=== PATIENT | female | born 1945 | race Caucasian/White ===

== ENCOUNTER 2017-05-31 11:18 | Observation (INO) | payer MEDICARE ==
[~2017-05-31] VITALS: Ht 162.6 cm; Wt 58.2 kg
[~2017-05-31 11:18] MED LIST: ASPI-482 PO; ATOR40TA59 PO; BUDE0.5A IH; MELO15TA23 PO; METO25TA4 PO; METO25TA9 PO; NITR0.4T SL; OMEP20TA63 PO; OMEP20TA8 PO; OXYB5TAB7 PO; SUCR1TAB PO; SUCR1TAB35 PO
[2017-05-31 11:40] LABS: BASO % 1 % (0-3); EOS % 4 % (0-3); HEMATOCRIT 40.5 % (36.0-47.0); HEMOGLOBIN 13.3 g/dL (12.0-15.5); LYMPH # 1.3 x10^3/uL (1.0-4.8); LYMPH % 32 % (24-48); MEAN CORPUSCULAR HEMOGLOBIN 31 pg (25-35); MEAN CORPUSCULAR HGB CONC 33 g/dL (31-37); MEAN CORPUSCULAR VOLUME 93 fL (79-100); MONO % 14 % (0-9); NEUT % 50 % (31-73); PLATELET COUNT 212 x10^3/uL (140-400); RED BLOOD COUNT 4.37 x10^6/uL (3.50-5.40); RED CELL DISTRIBUTION WIDTH 13.3 % (11.5-14.5); WHITE BLOOD COUNT 4.3 x10^3/uL (4.0-11.0)
[2017-05-31] MEDS ORDERED: ASPIRIN CHEWABLE 81 MG TABLET. PO ONE (11:45)
[2017-05-31 11:55] LABS: CALCIUM 8.5 mg/dL (8.5-10.1); CREATININE 0.6 mg/dL (0.6-1.0); POTASSIUM 3.8 mmol/L (3.5-5.1)
--- NOTE | 2017-05-31 11:55 | PHYS DOC ---
Past Medical History Past Medical History: GERD Past Surgical History: Appendectomy, Oophorectomy Additional Past Surgical Histo: X2 CARDIAC STENTS PLACED 2005 Alcohol Use: Rarely Drug Use: None Adult General Chief Complaint Chief Complaint: CHEST PAIN HPI HPI 72-year-old female presenting to the emergency department today with chest pain. She describes the pain as a pressure that is nonradiating intermittent and without alleviating factors. She does have a history of esophageal dilation and history of cardiac stents in the past. She denies nausea or diaphoresis. She does have shortness of breath associated with it. She has a history of COPD as well. Review of systems is negative for fevers chills cough nausea vomiting. She denies abdominal pain. All other review of systems is negative unless otherwise noted in history of present illness. ED course: 72-year-old female presenting to the emergency department today with chest pain. EKG obtained. EKG shows sinus rhythm with a regular rate. [place] normal. ST segments show minimal depression in the anterior lateral leads. No previous available for comparison in cardioserver. Blood work obtained. The patient received a nebulizer in the emergency department. Chest x-ray shows no obvious infiltrate or pneumothorax. Reviewed by myself. Blood work unremarkable. Given the patient's strong cardiac history the patient was admitted for ACS rule out. Review of Systems Review of Systems SEE ABOVE. Current Medications Current Medications Current Medications Medications (Trade) Dose Ordered Sig/[place] Start Time Stop Time Status Last Admin Dose Admin Albuterol/ Ipratropium (Duoneb) 3 ml 1X ONCE 05/31/17 12:00 05/31/17 12:01 DC 05/31/17 12:05 3 ML Aspirin (Children'S Aspirin) 243 mg 1X ONCE 05/31/17 11:45 05/31/17 11:46 DC 05/31/17 11:48 243 MG Morphine Sulfate 2 mg PRN Q2HR PRN 05/31/17 12:30 06/01/17 12:29 Ondansetron HCl (Zofran) 4 mg PRN Q8HRS PRN 05/31/17 12:30 06/01/17 12:29 Allergies Allergies Allergies Coded Allergies Type Severity Reaction Last Updated Verified Penicillins Allergy Intermediate 08/06/14 Yes influenza virus vaccine, specific Adverse Reaction Intermediate made me "sick "08/06/14 Yes Physical Exam Physical Exam SEE ABOVE Constitutional: Well developed, well nourished, no acute distress, non-toxic appearance. [] HENT: Normocephalic, atraumatic, bilateral external ears normal, oropharynx moist, no oral exudates, nose normal. [] Eyes: PERRLA, EOMI, conjunctiva normal, no discharge. [] Neck: Normal range of motion, no tenderness, supple, no stridor. [] Cardiovascular:Heart rate regular rhythm, no murmur [] Lungs & Thorax: Wheezing bilaterally mild. Mildly tachypneic. Abdomen: Bowel sounds normal, soft, no tenderness, no masses, no pulsatile masses. [] Skin: Warm, dry, no erythema, no rash. [] Back: No tenderness, no CVA tenderness. [] Extremities: No tenderness, no cyanosis, no clubbing, ROM intact, no edema. [] Neurologic: Alert and oriented X 3, normal motor function, normal sensory function, no focal deficits noted. [] Psychologic: Affect normal, judgement normal, mood normal. [] Current Patient Data Vital Signs Vital Signs Date Time Temp Pulse Resp B/P (MAP) Pulse Ox O2 Delivery O2 Flow Rate FiO2 05/31/17 12:08 100 Room Air 05/31/17 11:58 64 132/72 (92) 05/31/17 11:26 97.8 24 97.8 Lab Values Laboratory Tests Test 05/31/17 11:30 White Blood Count 4.3 x10^3/uL (4.0-11.0) Red Blood Count 4.37 x10^6/uL (3.50-5.40) Hemoglobin 13.3 g/dL (12.0-15.5) Hematocrit 40.5 % (36.0-47.0) Mean Corpuscular Volume 93 fL (79-100) Mean Corpuscular Hemoglobin 31 pg (25-35) Mean Corpuscular Hemoglobin Concent 33 g/dL (31-37) Red Cell Distribution Width 13.3 % (11.5-14.5) Platelet Count 212 x10^3/uL (140-400) Neutrophils (%) (Auto) 50 % (31-73) Lymphocytes (%) (Auto) 32 % (24-48) Monocytes (%) (Auto) 14 % (0-9) H Eosinophils (%) (Auto) 4 % (0-3) H Basophils (%) (Auto) 1 % (0-3) Neutrophils # (Auto) 2.1 x10^3uL (1.8-7.7) Lymphocytes # (Auto) 1.3 x10^3/uL (1.0-4.8) Monocytes # (Auto) 0.6 x10^3/uL (0.0-1.1) Eosinophils # (Auto) 0.2 x10^3/uL (0.0-0.7) Basophils # (Auto) 0.0 x10^3/uL (0.0-0.2) Sodium Level 142 mmol/L (136-145) Potassium Level 3.8 mmol/L (3.5-5.1) Chloride Level 105 mmol/L (98-107) Carbon Dioxide Level 30 mmol/L (21-32) Anion Gap 7 (6-14) Blood Urea Nitrogen 11 mg/dL (7-20) Creatinine 0.6 mg/dL (0.6-1.0) Estimated GFR (Cockcroft-Gault) 98.0 Glucose Level 88 mg/dL (70-99) Calcium Level 8.5 mg/dL (8.5-10.1) Total Bilirubin 0.7 mg/dL (0.2-1.0) Direct Bilirubin 0.1 mg/dL (0.0-0.2) Aspartate Amino Transferase (AST) 18 U/L (15-37) Alanine Aminotransferase (ALT) 24 U/L (14-59) Alkaline Phosphatase 58 U/L (46-116) Troponin I Quantitative < 0.017 ng/mL (0.000-0.055) EB-Rox-G-Type Natriuretic Peptide 162 pg/mL (0-124) H Total Protein 7.4 g/dL (6.4-8.2) Albumin 3.8 g/dL (3.4-5.0) Lipase 139 U/L (73-393) Laboratory Tests 05/31/17 11:30 Laboratory Tests 05/31/17 11:30 EKG EKG [] Radiology/Procedures Radiology/Procedures [] Course & Med Decision Making Course & Med Decision Making Pertinent Labs and Imaging studies reviewed. (See chart for details) [] Dragon Disclaimer Dragon Disclaimer This electronic medical record was generated, in whole or in part, using a voice recognition dictation system. Departure Departure Impression: Primary Impression: Chest pain Disposition: ADMITTED INPATIENT Condition: STABLE Referrals: LEXUS CERVANTES (PCP) ANA BYRNE MD May 31, 2017 11:55
[2017-05-31] MEDS ORDERED: IPRATRPIUM/ALBUTEROL 0.5/2.5MG 3 ML NEBU. NEB ONE (12:00)
[2017-05-31 12:01] LABS: ALBUMIN 3.8 g/dL (3.4-5.0); DIRECT BILIRUBIN 0.1 mg/dL (0.0-0.2); TOTAL BILIRUBIN 0.7 mg/dL (0.2-1.0); TOTAL PROTEIN 7.4 g/dL (6.4-8.2)
--- NOTE | 2017-05-31 12:08 | EKG ---
[facility] [address] [place] [address] Test Date: 2017-05-31 Test Time: 11:25:24 Pat Name: MISBAH MCMAHON Department: Room: Gender: F Securities Supervisor: : 1945 Requested By: ANA BYRNE Order Number: [id number] Reading MD: Measurements Intervals [place] Rate: 72 P: 13 [place]: 144 QRS: 1 QRSD: 76 T: 0 QT: 364 QTc: 400 Interpretive Statements SINUS RHYTHM NORMAL ECG RI6.01 Unconfirmed report No previous ECG available for comparison
--- NOTE | 2017-05-31 12:22 | RAD ---
Indication midsternal chest pain. A single view of the chest was obtained. No prior imaging of the chest is available. Heart size is at the upper limits of normal. There are suspect background changes of fibrosis. There is no consolidated pneumonia significant pleural fluid collection or pneumothorax. The visualized bony structures appear grossly intact. IMPRESSION: No acute finding seen in the chest
[2017-05-31] MEDS ORDERED: ONDANSETRON PF 4 MG/2 ML VIAL. IV PRN ×2 (12:30→14:15)
[2017-05-31] MEDS ORDERED: MORPHINE SULFATE 2 MG/ML DISP.SYRIN. IV PRN ×2 (12:30→14:15)
--- NOTE | 2017-05-31 14:14 | PDOC1 ---
History and Physical Date of Admission Date of Admission 05/31/17 Identification/Chief Complaint Chief Complaint chest pain Problems: Source Source: Chart review, Patient History of Present Illness History of Present Illness HPI HPI 72-year-old female with h/o CAD with 2 times PCI presenting to the emergency department today with chest pain. Pt has been having this chest pain for about 1 month, worse at exertional. The chest pain is located substernal, tightness, no radiation, non n/v, diaphorsis, sob. 8/10, lasting 10-15min each time, better with resting. Pt not sure if this feels like previous ND. She also has gastraporesis, gerd, but not sure if they are the same. no fever, chills, + mild cough. She does have a history of esophageal dilation. Past Medical History Cardiovascular: CAD, HTN Past Surgical History Past Surgical History: Appendectomy Family History Family History: Hypertension Social History Smoke: Quit ALCOHOL: none Drugs: None Current Problem List Problem List Problems Medical Problems: (1) Chest pain Status: Acute Current Medications Current Medications Current Medications Medications (Trade) Dose Ordered Sig/[place] Start Time Stop Time Status Last Admin Dose Admin Albuterol/ Ipratropium (Duoneb) 3 ml 1X ONCE 05/31/17 12:00 05/31/17 12:01 DC 05/31/17 12:05 3 ML Aspirin (Children'S Aspirin) 243 mg 1X ONCE 05/31/17 11:45 05/31/17 11:46 DC 05/31/17 11:48 243 MG Aspirin (Ecotrin) 81 mg DAILY 06/01/17 09:00 UNV Atorvastatin Calcium (Lipitor) 40 mg DAILY 06/01/17 09:00 UNV Metoprolol Succinate (Toprol Xl) 25 mg DAILY 06/01/17 09:00 UNV Morphine Sulfate 2 mg PRN Q2HR PRN 05/31/17 12:30 06/01/17 12:29 Nitroglycerin (Nitrostat) 0.4 mg PRN Q5MIN PRN 05/31/17 14:15 UNV Non-Formulary Medication 1 tab DAILY 06/01/17 09:00 UNV Ondansetron HCl (Zofran) 4 mg PRN Q8HRS PRN 05/31/17 12:30 06/01/17 12:29 Sucralfate (Carafate) 1 gm TID 05/31/17 21:00 UNV Allergies Allergies Allergies Coded Allergies Type Severity Reaction Last Updated Verified Penicillins Allergy Intermediate 08/06/14 Yes influenza virus vaccine, specific Adverse Reaction Intermediate made me "sick "08/06/14 Yes ROS Review of System CONSTITUTIONAL: No fever or chills EYES: No recent changes SKIN: No rash or itching CARDIOVASCULAR: No chest pain, syncope, palpitations, or edema RESPIRATORY: No SOB or cough GASTROINTESTINAL: No nausea, vomiting or abdominal pain NEUROLOGICAL: No headaches or weakness ENDOCRINE: No cold or heat intolerance GENITOURINARY: No urgency or frequency of urination MUSCULOSKELETAL: No back pain or joint pain LYMPHATICS: No enlarged lymph nodes PSYCHIATRIC: No anxiety or depression Physical Exam Physical Exam GEN.: No apparent distress. Alert and oriented. HEENT: Head is normocephalic, atraumatic NECK: Supple. LUNGS: Clear to auscultation. chest wall mild tenderness HEART: RRR, S1, S2 present. Peripheral pulses intact ABDOMEN: Soft, nontender. Positive bowel sounds. EXTREMITIES: Without any cyanosis. NEUROLOGIC: Normal speech, normal tone PSYCHIATRIC: Normal affect, normal mood. SKIN: No ulcerations Vitals Vitals Vital Signs Date Time Temp Pulse Resp B/P (MAP) Pulse Ox O2 Delivery O2 Flow Rate FiO2 05/31/17 13:28 70 129/76 (93) 100 Room Air 05/31/17 11:26 97.8 24 97.8 Labs Labs Laboratory Tests Test 05/31/17 11:30 White Blood Count 4.3 x10^3/uL (4.0-11.0) Red Blood Count 4.37 x10^6/uL (3.50-5.40) Hemoglobin 13.3 g/dL (12.0-15.5) Hematocrit 40.5 % (36.0-47.0) Mean Corpuscular Volume 93 fL (79-100) Mean Corpuscular Hemoglobin 31 pg (25-35) Mean Corpuscular Hemoglobin Concent 33 g/dL (31-37) Red Cell Distribution Width 13.3 % (11.5-14.5) Platelet Count 212 x10^3/uL (140-400) Neutrophils (%) (Auto) 50 % (31-73) Lymphocytes (%) (Auto) 32 % (24-48) Monocytes (%) (Auto) 14 % (0-9) Eosinophils (%) (Auto) 4 % (0-3) Basophils (%) (Auto) 1 % (0-3) Neutrophils # (Auto) 2.1 x10^3uL (1.8-7.7) Lymphocytes # (Auto) 1.3 x10^3/uL (1.0-4.8) Monocytes # (Auto) 0.6 x10^3/uL (0.0-1.1) Eosinophils # (Auto) 0.2 x10^3/uL (0.0-0.7) Basophils # (Auto) 0.0 x10^3/uL (0.0-0.2) Sodium Level 142 mmol/L (136-145) Potassium Level 3.8 mmol/L (3.5-5.1) Chloride Level 105 mmol/L (98-107) Carbon Dioxide Level 30 mmol/L (21-32) Anion Gap 7 (6-14) Blood Urea Nitrogen 11 mg/dL (7-20) Creatinine 0.6 mg/dL (0.6-1.0) Estimated GFR (Cockcroft-Gault) 98.0 Glucose Level 88 mg/dL (70-99) Calcium Level 8.5 mg/dL (8.5-10.1) Total Bilirubin 0.7 mg/dL (0.2-1.0) Direct Bilirubin 0.1 mg/dL (0.0-0.2) Aspartate Amino Transf (AST/SGOT) 18 U/L (15-37) Alanine Aminotransferase (ALT/SGPT) 24 U/L (14-59) Alkaline Phosphatase 58 U/L (46-116) Troponin I Quantitative < 0.017 ng/mL (0.000-0.055) KN-Xvk-C-Type Natriuretic Peptide 162 pg/mL (0-124) Total Protein 7.4 g/dL (6.4-8.2) Albumin 3.8 g/dL (3.4-5.0) Lipase 139 U/L (73-393) Laboratory Tests Test 05/31/17 11:30 White Blood Count 4.3 x10^3/uL (4.0-11.0) Red Blood Count 4.37 x10^6/uL (3.50-5.40) Hemoglobin 13.3 g/dL (12.0-15.5) Hematocrit 40.5 % (36.0-47.0) Mean Corpuscular Volume 93 fL (79-100) Mean Corpuscular Hemoglobin 31 pg (25-35) Mean Corpuscular Hemoglobin Concent 33 g/dL (31-37) Red Cell Distribution Width 13.3 % (11.5-14.5) Platelet Count 212 x10^3/uL (140-400) Neutrophils (%) (Auto) 50 % (31-73) Lymphocytes (%) (Auto) 32 % (24-48) Monocytes (%) (Auto) 14 % (0-9) Eosinophils (%) (Auto) 4 % (0-3) Basophils (%) (Auto) 1 % (0-3) Neutrophils # (Auto) 2.1 x10^3uL (1.8-7.7) Lymphocytes # (Auto) 1.3 x10^3/uL (1.0-4.8) Monocytes # (Auto) 0.6 x10^3/uL (0.0-1.1) Eosinophils # (Auto) 0.2 x10^3/uL (0.0-0.7) Basophils # (Auto) 0.0 x10^3/uL (0.0-0.2) Sodium Level 142 mmol/L (136-145) Potassium Level 3.8 mmol/L (3.5-5.1) Chloride Level 105 mmol/L (98-107) Carbon Dioxide Level 30 mmol/L (21-32) Anion Gap 7 (6-14) Blood Urea Nitrogen 11 mg/dL (7-20) Creatinine 0.6 mg/dL (0.6-1.0) Estimated GFR (Cockcroft-Gault) 98.0 Glucose Level 88 mg/dL (70-99) Calcium Level 8.5 mg/dL (8.5-10.1) Total Bilirubin 0.7 mg/dL (0.2-1.0) Direct Bilirubin 0.1 mg/dL (0.0-0.2) Aspartate Amino Transf (AST/SGOT) 18 U/L (15-37) Alanine Aminotransferase (ALT/SGPT) 24 U/L (14-59) Alkaline Phosphatase 58 U/L (46-116) Troponin I Quantitative < 0.017 ng/mL (0.000-0.055) AY-Ahi-M-Type Natriuretic Peptide 162 pg/mL (0-124) Total Protein 7.4 g/dL (6.4-8.2) Albumin 3.8 g/dL (3.4-5.0) Lipase 139 U/L (73-393) VTE Prophylaxis Ordered VTE Prophylaxis Devices: Yes VTE Pharmacological Prophylaxi: Yes Assessment/Plan Assessment/Plan chest pain, need to rule out unstable angina h/o CAD post PCI gerd gastroparesis htn plan: card consult pending echo tsh, lipid cycle CE cont home meds gi ppx dvt ppx CANDY CARRILLO MD May 31, 2017 14:14
[2017-05-31] MEDS ORDERED: hydrALAZINE 20 MG/ML VIAL. IVP PRN (14:15)
[2017-05-31] MEDS ORDERED: NITROGLYCERIN SUBLINGUAL 0.4 MG BOTTLE OF 25. SL PRN (14:15)
[2017-05-31] MEDS ORDERED: ACETAMINOPHEN 325 MG TABLET. PO PRN (14:15)
[2017-05-31] MEDS ORDERED: traMADol 50 MG TABLET PO PRN (14:15)
[2017-05-31] MEDS ORDERED: DOCUSATE SODIUM 100 MG CAPSULE. PO PRN (14:15)
[2017-05-31 14:59] VITALS: BP 126/70
[2017-05-31] MEDS: METOPROLOL SUCC 24HR ER 25 MG TAB.ER.24H. PO SCH (15:00)
[2017-05-31] MEDS: SUCRALFATE 1 GM TABLET. PO SCH ×2 (15:00→20:25)
[2017-05-31] MEDS: ASPIRIN ENTERIC COATED 81 MG TABLET.DR. PO SCH (15:00)
[2017-05-31] MEDS: PANTOPRAZOLE 40 MG TABLET.DR. PO SCH (15:47)
[2017-05-31] MEDS: ATORVASTATIN CALCIUM 40 MG TABLET. PO SCH (15:47)
--- NOTE | 2017-05-31 16:28 | CARD ---
APPROVED REPORT EXAM: Two-dimensional and M-mode echocardiogram with Doppler and color Doppler. Other Information Quality : Good INDICATION Chest Pain 2D DIMENSIONS RVDd3.0 (2.9-3.5cm)Left Atrium(2D)3.4 (1.6-4.0cm) IVSd0.9 (0.7-1.1cm)Aortic Root(2D)3.1 (2.0-3.7cm) LVDd4.4 (3.9-5.9cm)LVOT Diameter2.0 (1.8-2.4cm) PWd0.9 (0.7-1.1cm)LVDs2.9 (2.5-4.0cm) FS (%) 30.0 %SV55.7 ml LVEF(%)60.0 (>50%) Aortic Valve AoV Peak Heraclio.116.1cm/sAoV VTI22.6cm AO Peak GR.5.4mmHgLVOT Peak Heraclio.113.4cm/s LVOT VTI 17.47cmAO Mean GR.3mmHg LUTHER (VMAX)3.89hp1WAO (VTI)2.45cm2 Mitral Valve MV E Odnkxvut87.3cm/sMV DECEL BUOP214ls MV A Urvaalqj03.2cm/sMV EIF29jn E/A Ratio0.9MVA (PHT)3.52cm2 TDI E/Lateral E'9.9E/Medial E'11.6 Tricuspid Valve TR P. Akywvatd814vf/sRAP RNTACYZR7baPf TR Peak Gr.23qjPzRJMF06ipLf Pulmonary Vein S1 Kfzdtucb90.5cm/sD2 Kwpdjsra90.4cm/s PVa gicgdadb519evsz LEFT VENTRICLE The left ventricle is normal size. There is normal left ventricular wall thickness. The left ventricu lar systolic function is normal and the ejection fraction is within normal range. The Ejection Fracti on is 55-60%. There is normal LV segmental wall motion. Transmitral Doppler flow pattern is Grade I-a bnormal relaxation pattern. RIGHT VENTRICLE The right ventricle is normal size. The right ventricular systolic function is normal. ATRIA The left atrium size is normal. The right atrium is mildly dilated. The interatrial septum is intact with no evidence for an atrial septal defect or patent foramen ovale as noted on 2-D or Doppler imagi ng. AORTIC VALVE The aortic valve is calcified but opens well. Doppler and Color Flow revealed trace aortic regurgitat ion. There is no significant aortic valvular stenosis. MITRAL VALVE The mitral valve is mildly thickened but opens well. There is no evidence of mitral valve prolapse. T here is no mitral valve stenosis. Doppler and Color-flow revealed mild mitral regurgitation. TRICUSPID VALVE The tricuspid valve is normal in structure and function. Doppler and Color Flow revealed mild tricusp id regurgitation. The PA pressure was estimated at 28 mmHg. There is no tricuspid valve stenosis. PULMONIC VALVE The pulmonary valve is normal in structure and function. Doppler and Color Flow revealed mild pulmoni c valvular regurgitation. There is no pulmonic valvular stenosis. GREAT VESSELS The aortic root is normal in size. The ascending aorta is normal in size. The IVC is normal in size a nd collapses >50% with inspiration. PERICARDIAL EFFUSION There is no evidence of significant pericardial effusion. Critical Notification Critical Value: No <Conclusion> The left ventricle is normal size. The left ventricular systolic function is normal and the ejection fraction is within normal range. The Ejection Fraction is 55-60%. There is no significant aortic valvular stenosis. Doppler and Color Flow revealed trace aortic regurgitation. Doppler and Color-flow revealed mild mitral regurgitation. Doppler and Color Flow revealed mild tricuspid regurgitation. The PA pressure was estimated at 28 mmHg.
--- NOTE | 2017-05-31 17:32 | PDOC2 ---
CONSULT Date of Consult Date of Consult DATE: 05/31/17 TIME: 17:04 Reason for Consult Reason for Consult: Chest pain Referring Physician Referring Physician: Dr. Purvis Identification/Chief Complaint Chief Complaint Chest pain Problems: Source Source: Patient History of Present Illness Reason for Visit: The patient is a 72 year old female who reports new onset chest pain starting this morning. It gradually increased but resolved after treatment in the ER. She remains pain free. EKG shows no acute changes. Initial troponin is normal. She has a history of CAD and stents placed about 6 years ago. She also has a history of HTN and esophageal strictures. She is now comfortable in bed. Past Medical History Cardiovascular: CAD, HTN GI: Other (esophageal strictures.) Past Surgical History Past Surgical History: Appendectomy, Other (coronary stents) Family History Family History: Hypertension Social History Quit ALCOHOL: none Drugs: None Current Problem List Problem List Problems Medical Problems: (1) Chest pain Status: Acute Current Medications Current Medications Current Medications Aspirin (Children'S Aspirin) 243 mg 1X ONCE PO Last administered on 05/31/17 11:48; Start 05/31/17 at 11:45; Stop 05/31/17 at 11:46; Status DC Albuterol/ Ipratropium (Duoneb) 3 ml 1X ONCE NEB Last administered on 12:05; Start 05/31/17 at 12:00; Stop 05/31/17 at 12:01; Status DC Ondansetron HCl (Zofran) 4 mg PRN Q8HRS PRN IV NAUSEA/VOMITING; Start 05/31/17 at 12:30; Stop 06/01/17 at 12:29 Morphine Sulfate 2 mg PRN Q2HR PRN IV PAIN; Start 05/31/17 at 12:30; Stop 06/01 at 12:29 Aspirin (Ecotrin) 81 mg DAILY PO ; Start 05/31/17 at 15:00 Atorvastatin Calcium (Lipitor) 40 mg DAILY PO Last administered on 05/31/17 15 :47; Start 05/31/17 at 15:00 Metoprolol Succinate (Toprol Xl) 25 mg DAILY PO ; Start 05/31/17 at 15:00 Nitroglycerin (Nitrostat) 0.4 mg PRN Q5MIN PRN SL CHEST PAIN; Start 05/31/17 at 14:15 Sucralfate (Carafate) 1 gm TID PO ; Start 05/31/17 at 15:00 Pantoprazole Sodium (Protonix) 40 mg DAILYAC PO Last administered on 05/31/17t 15:47; Start 05/31/17 at 15:00 Acetaminophen (Tylenol) 650 mg PRN Q6HRS PRN PO FEVER; Start 05/31/17 at 14:15 Ondansetron HCl (Zofran) 4 mg PRN Q6HRS PRN IV NAUSEA/VOMITING; Start 05/31/17 at 14:15 Morphine Sulfate 2 mg PRN Q2HR PRN IV PAIN; Start 05/31/17 at 14:15 Tramadol HCl (Ultram) 50 mg PRN Q6HRS PRN PO PAIN; Start 05/31/17 at 14:15 Hydralazine HCl (Apresoline) 10 mg PRN Q4HRS PRN IVP ELEVATED BP, SEE COMMENTS ; Start 05/31/17 at 14:15 Docusate Sodium (Colace) 100 mg PRN DAILY PRN PO CONSTIPATION; Start 05/31/17 at 14:15 Enoxaparin Sodium (Lovenox 40mg Syringe) 40 mg Q24H SQ ; Start 05/31/17 at 21:00 Active Scripts Active Reported Prilosec Otc (Omeprazole Magnesium) 20 Mg Tablet.dr 1 Tab PO DAILY Metoprolol Succinate ( Xl ) (Metoprolol Succinate) 25 Mg Tab.er.24h 1 Tab PO DAILY Nitrostat (Nitroglycerin) 0.4 Mg Tab.subl 1 Tab SL UD Aspir 81 (Aspirin) 81 Mg Tablet. 1 Tab PO DAILY Sucralfate 1 Gm Tablet 1 Tab PO TID Atorvastatin Calcium 40 Mg Tablet 1 Tab PO DAILY Atorvastatin Calcium 40 Mg Tablet 40 Mg PO Carafate (Sucralfate) 1 Gm Tablet 1 Gm PO QID Aspir 81 (Aspirin) 81 Mg Tablet. 81 Mg PO DAILY Metoprolol Tartrate 25 Mg Tablet 12.5 Mg PO DAILY Allergies Allergies: Coded Allergies: Penicillins (Verified Allergy, Intermediate, 08/06/14) influenza virus vaccine, specific (Verified Adverse Reaction, Intermediate , made me "sick", 08/06/14) ROS Cardiovascular: yes Chest Pain Physical Exam General: mild distress HEENT: Atraumatic Lungs: Clear to auscultation Heart: Regular rate Abdomen: Normal bowel sounds Vitals VITALS Vital Signs Date Time Temp Pulse Resp B/P (MAP) Pulse Ox O2 Delivery O2 Flow Rate FiO2 05/31/17 15:00 67 126/70 05/31/17 14:59 98.0 19 98 Room Air 98.0 Labs Labs Laboratory Tests Test 05/31/17 11:30 White Blood Count 4.3 x10^3/uL (4.0-11.0) Red Blood Count 4.37 x10^6/uL (3.50-5.40) Hemoglobin 13.3 g/dL (12.0-15.5) Hematocrit 40.5 % (36.0-47.0) Mean Corpuscular Volume 93 fL (79-100) Mean Corpuscular Hemoglobin 31 pg (25-35) Mean Corpuscular Hemoglobin Concent 33 g/dL (31-37) Red Cell Distribution Width 13.3 % (11.5-14.5) Platelet Count 212 x10^3/uL (140-400) Neutrophils (%) (Auto) 50 % (31-73) Lymphocytes (%) (Auto) 32 % (24-48) Monocytes (%) (Auto) 14 % (0-9) Eosinophils (%) (Auto) 4 % (0-3) Basophils (%) (Auto) 1 % (0-3) Neutrophils # (Auto) 2.1 x10^3uL (1.8-7.7) Lymphocytes # (Auto) 1.3 x10^3/uL (1.0-4.8) Monocytes # (Auto) 0.6 x10^3/uL (0.0-1.1) Eosinophils # (Auto) 0.2 x10^3/uL (0.0-0.7) Basophils # (Auto) 0.0 x10^3/uL (0.0-0.2) Sodium Level 142 mmol/L (136-145) Potassium Level 3.8 mmol/L (3.5-5.1) Chloride Level 105 mmol/L (98-107) Carbon Dioxide Level 30 mmol/L (21-32) Anion Gap 7 (6-14) Blood Urea Nitrogen 11 mg/dL (7-20) Creatinine 0.6 mg/dL (0.6-1.0) Estimated GFR (Cockcroft-Gault) 98.0 Glucose Level 88 mg/dL (70-99) Calcium Level 8.5 mg/dL (8.5-10.1) Total Bilirubin 0.7 mg/dL (0.2-1.0) Direct Bilirubin 0.1 mg/dL (0.0-0.2) Aspartate Amino Transf (AST/SGOT) 18 U/L (15-37) Alanine Aminotransferase (ALT/SGPT) 24 U/L (14-59) Alkaline Phosphatase 58 U/L (46-116) Troponin I Quantitative < 0.017 ng/mL (0.000-0.055) GD-Vmt-B-Type Natriuretic Peptide 162 pg/mL (0-124) Total Protein 7.4 g/dL (6.4-8.2) Albumin 3.8 g/dL (3.4-5.0) Lipase 139 U/L (73-393) Laboratory Tests Test 05/31/17 11:30 White Blood Count 4.3 x10^3/uL (4.0-11.0) Red Blood Count 4.37 x10^6/uL (3.50-5.40) Hemoglobin 13.3 g/dL (12.0-15.5) Hematocrit 40.5 % (36.0-47.0) Mean Corpuscular Volume 93 fL (79-100) Mean Corpuscular Hemoglobin 31 pg (25-35) Mean Corpuscular Hemoglobin Concent 33 g/dL (31-37) Red Cell Distribution Width 13.3 % (11.5-14.5) Platelet Count 212 x10^3/uL (140-400) Neutrophils (%) (Auto) 50 % (31-73) Lymphocytes (%) (Auto) 32 % (24-48) Monocytes (%) (Auto) 14 % (0-9) Eosinophils (%) (Auto) 4 % (0-3) Basophils (%) (Auto) 1 % (0-3) Neutrophils # (Auto) 2.1 x10^3uL (1.8-7.7) Lymphocytes # (Auto) 1.3 x10^3/uL (1.0-4.8) Monocytes # (Auto) 0.6 x10^3/uL (0.0-1.1) Eosinophils # (Auto) 0.2 x10^3/uL (0.0-0.7) Basophils # (Auto) 0.0 x10^3/uL (0.0-0.2) Sodium Level 142 mmol/L (136-145) Potassium Level 3.8 mmol/L (3.5-5.1) Chloride Level 105 mmol/L (98-107) Carbon Dioxide Level 30 mmol/L (21-32) Anion Gap 7 (6-14) Blood Urea Nitrogen 11 mg/dL (7-20) Creatinine 0.6 mg/dL (0.6-1.0) Estimated GFR (Cockcroft-Gault) 98.0 Glucose Level 88 mg/dL (70-99) Calcium Level 8.5 mg/dL (8.5-10.1) Total Bilirubin 0.7 mg/dL (0.2-1.0) Direct Bilirubin 0.1 mg/dL (0.0-0.2) Aspartate Amino Transf (AST/SGOT) 18 U/L (15-37) Alanine Aminotransferase (ALT/SGPT) 24 U/L (14-59) Alkaline Phosphatase 58 U/L (46-116) Troponin I Quantitative < 0.017 ng/mL (0.000-0.055) AV-Zup-F-Type Natriuretic Peptide 162 pg/mL (0-124) Total Protein 7.4 g/dL (6.4-8.2) Albumin 3.8 g/dL (3.4-5.0) Lipase 139 U/L (73-393) Images Images CXR. No acute changes Assessment/Plan Assessment/Plan 1. Chest pain. Resolved. No acute EKG changes and initial troponin normal. Continue meds. ECHO. Rule out for a PR. MPI in the morning if the patient rules out. 2. HTN. Controlled. Continue medications. 3. GERD. Continue medications and monitor. 4. Possible HLD. Cholesterol panel in the morning. Thank you for allowing us to participate in the care of your patient. ONUR HUERTA MD May 31, 2017 17:32
[2017-05-31 19:48] VITALS: BP 113/67
--- NOTE | 2017-05-31 19:57 | EKG ---
[facility] [address] [place] [address] Test Date: 2017-05-31 Test Time: 19:54:08 Pat Name: MISBAH MCMAHON Department: Room: [facility] Gender: F [employer]: ANKUSH : 1945 Requested By: ADOLFO CHOE Order Number: [id number] Reading MD: Measurements Intervals [place] Rate: 67 P: 12 VT: 150 QRS: -4 QRSD: 74 T: -6 QT: 374 QTc: 398 Interpretive Statements SINUS RHYTHM LEFTWARD AXIS T ABNORMALITY IN INFERIOR LEADS ABNORMAL ECG RI6.01 Unconfirmed report No previous ECG available for comparison
[2017-05-31] MEDS ORDERED: MORPHINE SULFATE 4 MG/ML DISP.SYRIN. IV PRN (20:15)
[2017-05-31] MEDS ORDERED: ENOXAPARIN 40 MG/0.4 ML SYRINGE. SQ SCH (21:00)
[2017-05-31 23:09] VITALS: BP 122/63
[2017-06-01] VITALS (16 sets, daily range): BP systolic 116–131; BP diastolic 58–77
[2017-06-01 03:29] LABS: BASO % 1 % (0-3); EOS % 3 % (0-3); HEMOGLOBIN 12.4 g/dL (12.0-15.5); LYMPH # 1.3 x10^3/uL (1.0-4.8); LYMPH % 30 % (24-48); MEAN CORPUSCULAR HEMOGLOBIN 31 pg (25-35); MEAN CORPUSCULAR HGB CONC 33 g/dL (31-37); MEAN CORPUSCULAR VOLUME 94 fL (79-100); MONO % 12 % (0-9); NEUT % 55 % (31-73); PLATELET COUNT 199 x10^3/uL (140-400); RED BLOOD COUNT 4.05 x10^6/uL (3.50-5.40); RED CELL DISTRIBUTION WIDTH 13.9 % (11.5-14.5); WHITE BLOOD COUNT 4.4 x10^3/uL (4.0-11.0)
[2017-06-01 03:49] LABS: CREATININE 0.5 mg/dL (0.6-1.0); GFR 120.9; POTASSIUM 4.5 mmol/L (3.5-5.1)
[2017-06-01 04:07] LABS: CHOLESTEROL/HDL RATIO 3.1
[2017-06-01] MEDS: SUCRALFATE 1 GM TABLET. PO SCH ×2 (07:08→14:00)
[2017-06-01] MEDS: PANTOPRAZOLE 40 MG TABLET.DR. PO SCH (07:08)
[2017-06-01] MEDS: METOPROLOL SUCC 24HR ER 25 MG TAB.ER.24H. PO SCH (07:09)
[2017-06-01] MEDS: ATORVASTATIN CALCIUM 40 MG TABLET. PO SCH (07:09)
[2017-06-01] MEDS: ASPIRIN ENTERIC COATED 81 MG TABLET.DR. PO SCH (07:09)
[2017-06-01] MEDS ORDERED: REGADENOSON 0.4 MG/5 ML DISP.SYRIN. IV ONE (09:00)
--- NOTE | 2017-06-01 09:13 | PDOC ---
CARDIOLOGY PROGRESS NOTE SUBJECTIVE: Overnight, had more chest pain around midnight. Her CP is similar in nature to her prior to two stents. She has also had fatigue for 2 months consistent with symptoms she has had prior. OBJECTIVE: Vital SIgns: Vital Signs Date Time Temp Pulse Resp B/P (MAP) Pulse Ox O2 Delivery O2 Flow Rate FiO2 06/01/17 07:51 Room Air 06/01/17 07:00 97.6 64 18 129/66 (87) 100 97.6 I & O Intake and Output 06/01/17 07:00 Intake Total 500 ml Output Total 600 ml Balance -100 ml Intake Oral 500 ml Output Urine Total 600 ml # Voids 1 Objective: GEN.: No apparent distress. Alert and oriented. HEENT: Head is normocephalic, atraumatic NECK: Supple. LUNGS: Clear to auscultation. HEART: RRR, S1, S2 present. Peripheral pulses intact ABDOMEN: Soft, nontender. Positive bowel sounds. EXTREMITIES: Without any cyanosis. NEUROLOGIC: Normal speech, normal tone PSYCHIATRIC: Normal affect, normal mood. SKIN: No ulcerations CURRENT MEDICATIONS: Current Medications Medications (Trade) Dose Ordered Sig/[place] Start Time Stop Time Status Last Admin Dose Admin Acetaminophen (Tylenol) 650 mg PRN Q6HRS PRN 05/31/17 14:15 Albuterol/ Ipratropium (Duoneb) 3 ml 1X ONCE 05/31/17 12:00 05/31/17 12:01 DC 05/31/17 12:05 3 ML Aspirin (Children'S Aspirin) 243 mg 1X ONCE 05/31/17 11:45 05/31/17 11:46 DC 05/31/17 11:48 243 MG Aspirin (Ecotrin) 81 mg DAILY 05/31/17 15:00 Atorvastatin Calcium (Lipitor) 40 mg DAILY 05/31/17 15:00 05/31/17 15:47 40 MG Docusate Sodium (Colace) 100 mg PRN DAILY PRN 05/31/17 14:15 Enoxaparin Sodium (Lovenox 40mg Syringe) 40 mg Q24H 05/31/17 21:00 05/31/17 20:27 40 MG Hydralazine HCl (Apresoline) 10 mg PRN Q4HRS PRN 05/31/17 14:15 Metoprolol Succinate (Toprol Xl) 25 mg DAILY 05/31/17 15:00 Morphine Sulfate 2 mg PRN Q2HR PRN 05/31/17 20:15 05/31/17 20:08 2 MG Nitroglycerin (Nitrostat) 0.4 mg PRN Q5MIN PRN 05/31/17 14:15 Ondansetron HCl (Zofran) 4 mg PRN Q6HRS PRN 05/31/17 14:15 Pantoprazole Sodium (Protonix) 40 mg DAILYAC 05/31/17 15:00 05/31/17 15:47 40 MG Regadenoson (Lexiscan) 0.4 mg 1X ONCE 06/01/17 09:00 06/01/17 09:02 DC Sucralfate (Carafate) 1 gm TID 05/31/17 15:00 05/31/17 20:25 1 GM Tramadol HCl (Ultram) 50 mg PRN Q6HRS PRN 05/31/17 14:15 DIAGNOSTIC TESTING: Trop negative x 3. ASSESSMENT: 1. Unstable angina 2. Dyslipidemia 3. Prior CAD with PCI to the proximal and distal RCA with 3.0/15 Taxus(2005) and [place] (2009) stents Problems: PLAN: 1. Will DC stress test. 2. Plan for cardiac cath this morning. Thanks. EMILI RICARDO MD Jun 01, 2017 09:13
[2017-06-01] MEDS ORDERED: LIDOCAINE 2% 20 ML VIAL. ONE (09:42)
[2017-06-01] MEDS ORDERED: IOHEXOL 300 MG/ML 100ML VIAL. ONE (09:42)
[2017-06-01] MEDS ORDERED: MIDAZOLAM HCL/PF 2 MG/2 ML VIAL. ONE (10:18)
[2017-06-01] MEDS ORDERED: VERAPAMIL 5 MG/2 ML VIAL. ONE (10:18)
[2017-06-01] MEDS ORDERED: NITROGLYCERIN 200 MCG/2 ML SYRINGE FOR CATH/VASC LAB. ONE (10:18)
[2017-06-01] MEDS ORDERED: HEPARIN for IV BOLUS 10,000 UNIT/10 ML VIAL. ONE (10:18)
[2017-06-01] MEDS ORDERED: fentaNYL PF VIAL 100 MCG/2 ML VIAL ONE (10:18)
[2017-06-01] MEDS ORDERED: BIVALIRUDIN 250 MG VIAL. IV ONE ×2 (10:41→11:00)
[2017-06-01] MEDS ORDERED: IOHEXOL 300 MG/ML 100ML VIAL. IART ONE (10:45)
[2017-06-01] MEDS ORDERED: NITROGLYCERIN 200 MCG/2 ML SYRINGE FOR CATH/VASC LAB. IART ONE (10:45)
[2017-06-01] MEDS ORDERED: VERAPAMIL 5 MG/2 ML VIAL. IART ONE (10:45)
[2017-06-01] MEDS ORDERED: fentaNYL PF VIAL 100 MCG/2 ML VIAL IV ONE (10:45)
[2017-06-01] MEDS ORDERED: HEPARIN for IV BOLUS 10,000 UNIT/10 ML VIAL. IART ONE (10:45)
[2017-06-01] MEDS ORDERED: LIDOCAINE 2% 20 ML VIAL. IJ ONE (10:45)
[2017-06-01] MEDS ORDERED: MIDAZOLAM HCL/PF 2 MG/2 ML VIAL. IV ONE (10:45)
[2017-06-01] MEDS ORDERED: ASPIRIN 325 MG TABLET PO ONE (11:00)
--- NOTE | 2017-06-01 11:29 | PDOC ---
PROGRESS NOTES Chief Complaint Chief Complaint chest pain, need to rule out unstable angina h/o CAD post PCI gerd gastroparesis htn History of Present Illness History of Present Illness Out having cardiac cath CHart reviewed PLAN: will await from cath Vitals Vitals Vital Signs Date Time Temp Pulse Resp B/P (MAP) Pulse Ox O2 Delivery O2 Flow Rate FiO2 06/01/17 11:20 56 12 100 Nasal Cannula 3.0 06/01/17 11:01 126/69 06/01/17 10:56 97.6 97.6 Physical Exam General: mild distress Heart: Regular rate Abdomen: Normal bowel sounds Labs LABS Laboratory Tests Test 05/31/17 11:30 05/31/17 18:10 06/01/17 01:00 White Blood Count 4.3 x10^3/uL (4.0-11.0) 4.4 x10^3/uL (4.0-11.0) Red Blood Count 4.37 x10^6/uL (3.50-5.40) 4.05 x10^6/uL (3.50-5.40) Hemoglobin 13.3 g/dL (12.0-15.5) 12.4 g/dL (12.0-15.5) Hematocrit 40.5 % (36.0-47.0) 38.0 % (36.0-47.0) Mean Corpuscular Volume 93 fL (79-100) 94 fL (79-100) Mean Corpuscular Hemoglobin 31 pg (25-35) 31 pg (25-35) Mean Corpuscular Hemoglobin Concent 33 g/dL (31-37) 33 g/dL (31-37) Red Cell Distribution Width 13.3 % (11.5-14.5) 13.9 % (11.5-14.5) Platelet Count 212 x10^3/uL (140-400) 199 x10^3/uL (140-400) Neutrophils (%) (Auto) 50 % (31-73) 55 % (31-73) Lymphocytes (%) (Auto) 32 % (24-48) 30 % (24-48) Monocytes (%) (Auto) 14 % (0-9) 12 % (0-9) Eosinophils (%) (Auto) 4 % (0-3) 3 % (0-3) Basophils (%) (Auto) 1 % (0-3) 1 % (0-3) Neutrophils # (Auto) 2.1 x10^3uL (1.8-7.7) 2.4 x10^3uL (1.8-7.7) Lymphocytes # (Auto) 1.3 x10^3/uL (1.0-4.8) 1.3 x10^3/uL (1.0-4.8) Monocytes # (Auto) 0.6 x10^3/uL (0.0-1.1) 0.5 x10^3/uL (0.0-1.1) Eosinophils # (Auto) 0.2 x10^3/uL (0.0-0.7) 0.1 x10^3/uL (0.0-0.7) Basophils # (Auto) 0.0 x10^3/uL (0.0-0.2) 0.0 x10^3/uL (0.0-0.2) Sodium Level 142 mmol/L (136-145) 142 mmol/L (136-145) Potassium Level 3.8 mmol/L (3.5-5.1) 4.5 mmol/L (3.5-5.1) Chloride Level 105 mmol/L (98-107) 105 mmol/L (98-107) Carbon Dioxide Level 30 mmol/L (21-32) 29 mmol/L (21-32) Anion Gap 7 (6-14) 8 (6-14) Blood Urea Nitrogen 11 mg/dL (7-20) 9 mg/dL (7-20) Creatinine 0.6 mg/dL (0.6-1.0) 0.5 mg/dL (0.6-1.0) Estimated GFR (Cockcroft-Gault) 98.0 120.9 Glucose Level 88 mg/dL (70-99) 88 mg/dL (70-99) Calcium Level 8.5 mg/dL (8.5-10.1) 9.0 mg/dL (8.5-10.1) Total Bilirubin 0.7 mg/dL (0.2-1.0) Direct Bilirubin 0.1 mg/dL (0.0-0.2) Aspartate Amino Transf (AST/SGOT) 18 U/L (15-37) Alanine Aminotransferase (ALT/SGPT) 24 U/L (14-59) Alkaline Phosphatase 58 U/L (46-116) Troponin I Quantitative < 0.017 ng/mL (0.000-0.055) < 0.017 ng/mL (0.000-0.055) < 0.017 ng/mL (0.000-0.055) OR-Voq-R-Type Natriuretic Peptide 162 pg/mL (0-124) Total Protein 7.4 g/dL (6.4-8.2) Albumin 3.8 g/dL (3.4-5.0) Lipase 139 U/L (73-393) Triglycerides Level 54 mg/dL (0-150) Cholesterol Level 209 mg/dL (0-200) LDL Cholesterol, Calculated 130 mg/dL (0-100) VLDL Cholesterol, Calculated 11 mg/dL (0-40) Non-HDL Cholesterol Calculated 141 mg/dL (0-129) HDL Cholesterol 68 mg/dL (40-60) Cholesterol/HDL Ratio 3.1 Thyroid Stimulating Hormone (TSH) 1.090 uIU/mL (0.358-3.74) Review of Systems Review of Systems n/a Assessment and Plan Assessmemt and Plan Problems Medical Problems: (1) Chest pain Status: Acute Problems: Comment Review of Relevant I have reviewed the following items heather (where applicable) has been applied. Labs Laboratory Tests Test 05/31/17 11:30 05/31/17 18:10 06/01/17 01:00 White Blood Count 4.3 x10^3/uL (4.0-11.0) 4.4 x10^3/uL (4.0-11.0) Red Blood Count 4.37 x10^6/uL (3.50-5.40) 4.05 x10^6/uL (3.50-5.40) Hemoglobin 13.3 g/dL (12.0-15.5) 12.4 g/dL (12.0-15.5) Hematocrit 40.5 % (36.0-47.0) 38.0 % (36.0-47.0) Mean Corpuscular Volume 93 fL (79-100) 94 fL (79-100) Mean Corpuscular Hemoglobin 31 pg (25-35) 31 pg (25-35) Mean Corpuscular Hemoglobin Concent 33 g/dL (31-37) 33 g/dL (31-37) Red Cell Distribution Width 13.3 % (11.5-14.5) 13.9 % (11.5-14.5) Platelet Count 212 x10^3/uL (140-400) 199 x10^3/uL (140-400) Neutrophils (%) (Auto) 50 % (31-73) 55 % (31-73) Lymphocytes (%) (Auto) 32 % (24-48) 30 % (24-48) Monocytes (%) (Auto) 14 % (0-9) 12 % (0-9) Eosinophils (%) (Auto) 4 % (0-3) 3 % (0-3) Basophils (%) (Auto) 1 % (0-3) 1 % (0-3) Neutrophils # (Auto) 2.1 x10^3uL (1.8-7.7) 2.4 x10^3uL (1.8-7.7) Lymphocytes # (Auto) 1.3 x10^3/uL (1.0-4.8) 1.3 x10^3/uL (1.0-4.8) Monocytes # (Auto) 0.6 x10^3/uL (0.0-1.1) 0.5 x10^3/uL (0.0-1.1) Eosinophils # (Auto) 0.2 x10^3/uL (0.0-0.7) 0.1 x10^3/uL (0.0-0.7) Basophils # (Auto) 0.0 x10^3/uL (0.0-0.2) 0.0 x10^3/uL (0.0-0.2) Sodium Level 142 mmol/L (136-145) 142 mmol/L (136-145) Potassium Level 3.8 mmol/L (3.5-5.1) 4.5 mmol/L (3.5-5.1) Chloride Level 105 mmol/L (98-107) 105 mmol/L (98-107) Carbon Dioxide Level 30 mmol/L (21-32) 29 mmol/L (21-32) Anion Gap 7 (6-14) 8 (6-14) Blood Urea Nitrogen 11 mg/dL (7-20) 9 mg/dL (7-20) Creatinine 0.6 mg/dL (0.6-1.0) 0.5 mg/dL (0.6-1.0) Estimated GFR (Cockcroft-Gault) 98.0 120.9 Glucose Level 88 mg/dL (70-99) 88 mg/dL (70-99) Calcium Level 8.5 mg/dL (8.5-10.1) 9.0 mg/dL (8.5-10.1) Total Bilirubin 0.7 mg/dL (0.2-1.0) Direct Bilirubin 0.1 mg/dL (0.0-0.2) Aspartate Amino Transf (AST/SGOT) 18 U/L (15-37) Alanine Aminotransferase (ALT/SGPT) 24 U/L (14-59) Alkaline Phosphatase 58 U/L (46-116) Troponin I Quantitative < 0.017 ng/mL (0.000-0.055) < 0.017 ng/mL (0.000-0.055) < 0.017 ng/mL (0.000-0.055) FU-Qot-V-Type Natriuretic Peptide 162 pg/mL (0-124) Total Protein 7.4 g/dL (6.4-8.2) Albumin 3.8 g/dL (3.4-5.0) Lipase 139 U/L (73-393) Triglycerides Level 54 mg/dL (0-150) Cholesterol Level 209 mg/dL (0-200) LDL Cholesterol, Calculated 130 mg/dL (0-100) VLDL Cholesterol, Calculated 11 mg/dL (0-40) Non-HDL Cholesterol Calculated 141 mg/dL (0-129) HDL Cholesterol 68 mg/dL (40-60) Cholesterol/HDL Ratio 3.1 Thyroid Stimulating Hormone (TSH) 1.090 uIU/mL (0.358-3.74) Laboratory Tests Test 05/31/17 11:30 05/31/17 18:10 06/01/17 01:00 White Blood Count 4.3 x10^3/uL (4.0-11.0) 4.4 x10^3/uL (4.0-11.0) Red Blood Count 4.37 x10^6/uL (3.50-5.40) 4.05 x10^6/uL (3.50-5.40) Hemoglobin 13.3 g/dL (12.0-15.5) 12.4 g/dL (12.0-15.5) Hematocrit 40.5 % (36.0-47.0) 38.0 % (36.0-47.0) Mean Corpuscular Volume 93 fL (79-100) 94 fL (79-100) Mean Corpuscular Hemoglobin 31 pg (25-35) 31 pg (25-35) Mean Corpuscular Hemoglobin Concent 33 g/dL (31-37) 33 g/dL (31-37) Red Cell Distribution Width 13.3 % (11.5-14.5) 13.9 % (11.5-14.5) Platelet Count 212 x10^3/uL (140-400) 199 x10^3/uL (140-400) Neutrophils (%) (Auto) 50 % (31-73) 55 % (31-73) Lymphocytes (%) (Auto) 32 % (24-48) 30 % (24-48) Monocytes (%) (Auto) 14 % (0-9) 12 % (0-9) Eosinophils (%) (Auto) 4 % (0-3) 3 % (0-3) Basophils (%) (Auto) 1 % (0-3) 1 % (0-3) Neutrophils # (Auto) 2.1 x10^3uL (1.8-7.7) 2.4 x10^3uL (1.8-7.7) Lymphocytes # (Auto) 1.3 x10^3/uL (1.0-4.8) 1.3 x10^3/uL (1.0-4.8) Monocytes # (Auto) 0.6 x10^3/uL (0.0-1.1) 0.5 x10^3/uL (0.0-1.1) Eosinophils # (Auto) 0.2 x10^3/uL (0.0-0.7) 0.1 x10^3/uL (0.0-0.7) Basophils # (Auto) 0.0 x10^3/uL (0.0-0.2) 0.0 x10^3/uL (0.0-0.2) Sodium Level 142 mmol/L (136-145) 142 mmol/L (136-145) Potassium Level 3.8 mmol/L (3.5-5.1) 4.5 mmol/L (3.5-5.1) Chloride Level 105 mmol/L (98-107) 105 mmol/L (98-107) Carbon Dioxide Level 30 mmol/L (21-32) 29 mmol/L (21-32) Anion Gap 7 (6-14) 8 (6-14) Blood Urea Nitrogen 11 mg/dL (7-20) 9 mg/dL (7-20) Creatinine 0.6 mg/dL (0.6-1.0) 0.5 mg/dL (0.6-1.0) Estimated GFR (Cockcroft-Gault) 98.0 120.9 Glucose Level 88 mg/dL (70-99) 88 mg/dL (70-99) Calcium Level 8.5 mg/dL (8.5-10.1) 9.0 mg/dL (8.5-10.1) Total Bilirubin 0.7 mg/dL (0.2-1.0) Direct Bilirubin 0.1 mg/dL (0.0-0.2) Aspartate Amino Transf (AST/SGOT) 18 U/L (15-37) Alanine Aminotransferase (ALT/SGPT) 24 U/L (14-59) Alkaline Phosphatase 58 U/L (46-116) Troponin I Quantitative < 0.017 ng/mL (0.000-0.055) < 0.017 ng/mL (0.000-0.055) < 0.017 ng/mL (0.000-0.055) II-Dzz-V-Type Natriuretic Peptide 162 pg/mL (0-124) Total Protein 7.4 g/dL (6.4-8.2) Albumin 3.8 g/dL (3.4-5.0) Lipase 139 U/L (73-393) Triglycerides Level 54 mg/dL (0-150) Cholesterol Level 209 mg/dL (0-200) LDL Cholesterol, Calculated 130 mg/dL (0-100) VLDL Cholesterol, Calculated 11 mg/dL (0-40) Non-HDL Cholesterol Calculated 141 mg/dL (0-129) HDL Cholesterol 68 mg/dL (40-60) Cholesterol/HDL Ratio 3.1 Thyroid Stimulating Hormone (TSH) 1.090 uIU/mL (0.358-3.74) Medications Current Medications Aspirin (Children'S Aspirin) 243 mg 1X ONCE PO Last administered on 05/31/17 11:48; Start 05/31/17 at 11:45; Stop 05/31/17 at 11:46; Status DC Albuterol/ Ipratropium (Duoneb) 3 ml 1X ONCE NEB Last administered on 12:05; Start 05/31/17 at 12:00; Stop 05/31/17 at 12:01; Status DC Ondansetron HCl (Zofran) 4 mg PRN Q8HRS PRN IV NAUSEA/VOMITING; Start 05/31/17 at 12:30; Stop 06/01/17 at 12:29 Morphine Sulfate 2 mg PRN Q2HR PRN IV PAIN; Start 05/31/17 at 12:30; Stop 05/31 at 20:00; Status DC Aspirin (Ecotrin) 81 mg DAILY PO ; Start 05/31/17 at 15:00 Atorvastatin Calcium (Lipitor) 40 mg DAILY PO Last administered on 05/31/17 15 :47; Start 05/31/17 at 15:00 Metoprolol Succinate (Toprol Xl) 25 mg DAILY PO ; Start 05/31/17 at 15:00 Nitroglycerin (Nitrostat) 0.4 mg PRN Q5MIN PRN SL CHEST PAIN; Start 05/31/17 at 14:15 Sucralfate (Carafate) 1 gm TID PO Last administered on 05/31/17 20:25; Start 05/31/17 at 15:00 Pantoprazole Sodium (Protonix) 40 mg DAILYAC PO Last administered on 05/31/17 15:47; Start 05/31/17 at 15:00 Acetaminophen (Tylenol) 650 mg PRN Q6HRS PRN PO FEVER; Start 05/31/17 at 14:15 Ondansetron HCl (Zofran) 4 mg PRN Q6HRS PRN IV NAUSEA/VOMITING; Start 05/31/17 at 14:15 Morphine Sulfate 2 mg PRN Q2HR PRN IV PAIN; Start 05/31/17 at 14:15; Stop 05/31 at 20:01; Status DC Tramadol HCl (Ultram) 50 mg PRN Q6HRS PRN PO PAIN; Start 05/31/17 at 14:15 Hydralazine HCl (Apresoline) 10 mg PRN Q4HRS PRN IVP ELEVATED BP, SEE COMMENTS ; Start 05/31/17 at 14:15 Docusate Sodium (Colace) 100 mg PRN DAILY PRN PO CONSTIPATION; Start 05/31/17 at 14:15 Enoxaparin Sodium (Lovenox 40mg Syringe) 40 mg Q24H SQ Last administered on 20:27; Start 05/31/17 at 21:00 Morphine Sulfate 2 mg PRN Q2HR PRN IV PAIN Last administered on 05/31/17 20:08 ; Start 05/31/17 at 20:15 Regadenoson (Lexiscan) 0.4 mg 1X ONCE IV ; Start 06/01/17 at 09:00; Stop at 09:02; Status DC Iohexol (Omnipaque 300 Mg/ml) 100 ml STK-MED ONCE .ROUTE ; Start 06/01/17 at 09: 42; Stop 06/01/17 at 09:46; Status DC Heparin Sodium/ Sodium Chloride 1,000 ml @ As Directed STK-MED ONCE .ROUTE ; Start 06/01/17 at 09:42; Stop 06/01/17 at 09:46; Status DC Lidocaine HCl 20 ml STK-MED ONCE .ROUTE ; Start 06/01/17 at 09:42; Stop at 09:46; Status DC Nitroglycerin (Nitroglycerin) 200 mcg STK-MED ONCE .ROUTE ; Start 06/01/17 at 10 :18; Stop 06/01/17 at 10:19; Status DC Verapamil HCl (Verapamil) 5 mg STK-MED ONCE .ROUTE ; Start 06/01/17 at 10:18; Stop 06/01/17 at 10:19; Status DC Heparin Sodium (Porcine) (Heparin Sodium) 10,000 unit STK-MED ONCE .ROUTE ; Start 06/01/17 at 10:18; Stop 06/01/17 at 10:19; Status DC Midazolam HCl (Versed) 2 mg STK-MED ONCE .ROUTE ; Start 06/01/17 at 10:18; Stop 06/01/17 at 10:19; Status DC Fentanyl Citrate (Fentanyl 2ml Vial) 100 mcg STK-MED ONCE .ROUTE ; Start at 10:18; Stop 06/01/17 at 10:19; Status DC Nitroglycerin (Nitroglycerin) 200 mcg 1X ONCE IART Last administered on 11:00; Start 06/01/17 at 10:45; Stop 06/01/17 at 10:50; Status DC Verapamil HCl (Verapamil) 2.5 mg 1X ONCE IART Last administered on 06/01/17 11:01; Start 06/01/17 at 10:45; Stop 06/01/17 at 10:50; Status DC Heparin Sodium (Porcine) (Heparin Sodium) 2,500 unit 1X ONCE IART Last administered on 06/01/17 11:17; Start 06/01/17 at 10:45; Stop 06/01/17 at 10:50 ; Status DC Heparin Sodium/ Sodium Chloride 1,000 unit 1X ONCE IART Last administered on 11:00; Start 06/01/17 at 10:45; Stop 06/01/17 at 10:50; Status DC Midazolam HCl (Versed) 2 mg 1X ONCE IV Last administered on 06/01/17 11:09; Start 06/01/17 at 10:45; Stop 06/01/17 at 10:50; Status DC Fentanyl Citrate (Fentanyl 2ml Vial) 100 mcg 1X ONCE IV Last administered on 11:08; Start 06/01/17 at 10:45; Stop 06/01/17 at 10:51; Status DC Iohexol (Omnipaque 300 Mg/ml) 100 ml 1X ONCE IART Last administered on 11:13; Start 06/01/17 at 10:45; Stop 06/01/17 at 10:50; Status DC Lidocaine HCl 20 ml 1X ONCE IJ Last administered on 06/01/17 11:01; Start 10/06 at 10:45; Stop 06/01/17 at 10:51; Status DC Bivalirudin (Angiomax) 250 mg STK-MED ONCE IV ; Start 06/01/17 at 10:41; Stop at 10:42; Status DC Bivalirudin (Angiomax) 250 mg 1X ONCE IV Last administered on 06/01/17t 11:01 ; Start 06/01/17 at 11:00; Stop 06/01/17 at 11:01; Status DC Aspirin (Carmelo Aspirin) 325 mg 1X ONCE PO ; Start 06/01/17 at 11:00; Stop 06/01 at 11:01; Status DC Active Scripts Active Reported Prilosec Otc (Omeprazole Magnesium) 20 Mg Tablet.dr 1 Tab PO DAILY Metoprolol Succinate ( Xl ) (Metoprolol Succinate) 25 Mg Tab.er.24h 1 Tab PO DAILY Nitrostat (Nitroglycerin) 0.4 Mg Tab.subl 1 Tab SL UD Aspir 81 (Aspirin) 81 Mg Tablet.dr 1 Tab PO DAILY Sucralfate 1 Gm Tablet 1 Tab PO TID Atorvastatin Calcium 40 Mg Tablet 1 Tab PO DAILY Atorvastatin Calcium 40 Mg Tablet 40 Mg PO Carafate (Sucralfate) 1 Gm Tablet 1 Gm PO QID Aspir 81 (Aspirin) 81 Mg Tablet.dr 81 Mg PO DAILY Metoprolol Tartrate 25 Mg Tablet 12.5 Mg PO DAILY Vitals/I & O Vital Sign - Last 24 Hours 05/31/17 05/31/17 05/31/17 05/31/17 11:58 12:08 12:58 13:28 Pulse 64 73 70 B/P (MAP) 132/72 (92) 141/71 (94) 129/76 (93) Pulse Ox 100 100 100 100 O2 Delivery Room Air Room Air Room Air Room Air 05/31/17 05/31/17 05/31/17 05/31/17 14:59 15:00 19:40 19:48 Temp 98.0 97.8 98.0 97.8 Pulse 67 67 65 Resp 19 18 B/P (MAP) 126/70 (88) 126/70 113/67 (82) Pulse Ox 98 99 O2 Delivery Room Air Room Air Room Air 05/31/17 05/31/17 05/31/17 06/01/17 20:08 20:27 23:09 02:47 Temp 97.9 97.7 97.9 97.7 Pulse 64 61 Resp 20 20 18 18 B/P (MAP) 122/63 (82) 117/60 (79) Pulse Ox 98 7 O2 Delivery Room Air Room Air Room Air Room Air 06/01/17 06/01/17 06/01/17 06/01/17 07:00 07:51 10:56 11:01 Temp 97.6 97.6 97.6 97.6 Pulse 64 67 73 Resp 18 18 B/P (MAP) 129/66 (87) 116/77 (90) 126/69 Pulse Ox 100 100 O2 Delivery Room Air Room Air Room Air 06/01/17 06/01/17 11:08 11:20 Pulse 56 Resp 12 12 Pulse Ox 100 100 O2 Delivery Nasal Cannula Nasal Cannula O2 Flow Rate 2.0 3.0 Intake and Output 05/31/17 05/31/17 06/01/17 15:00 23:00 07:00 Intake Total 400 ml 100 ml Output Total 300 ml 300 ml Balance -300 ml 100 ml 100 ml MEKA PLASENCIA MD Jun 01, 2017 11:29
--- NOTE | 2017-06-01 12:38 | CARD ---
APPROVED REPORT Procedure(s) performed: SEDATION TIME: 45 MINUTES HISTORY The patient is a 72 year-old female with a history of : previous OK, previous PCI (The PCI date was ). INDICATION The indication(s) include : unstable angina . CASE TECHNIQUE During this case, Fluoroscopy and low osmolar contrast were used for imaging. PROCEDURE NARRATIVE The patient was brought electively to the cardiac catheterization lab. A timeout was performed confi rming the patient's name, date of , procedure, and site of procedure. All necessary personnel w ere wearing the appropriate protective equipment and radiation monitor devices. After explaining the risks and benefits of the procedure and alternatives, informed consent was obtained. (See nursing no farhat for medications administered). The right wrist was sterilely prepped and draped in the usual fas hion. The right wrist was infiltrated with 1 mL of 2% lidocaine for subcutaneous anesthesia. A 6 Fr ench Terumo glide sheath was inserted into the right radial artery without difficulty. Right and lef t coronary angiography was performed using a 6Fr TIG 4.0 catheter. Left ventricular end diastolic pr essure was obtained with a pigtail catheter and pullback was performed after left ventriculography. All catheter exchanges and advancements were performed over a guidewire. At case completion the righ t radial sheath was removed and a Terumo radial band was applied with 13 ml of air. The patient tole rated the procedure well and there were no immediate complications. HEMODYNAMICS: LVEDP 18 mm Hg No gradient on LV to aortic pullback. LEFT VENTRICULOGRAM: EF 55% Anterobasal: Normal. Anterolateral: Normal Apical: Normal Diaphragmatic: Normal Posterobasal: Normal *No aortic insufficiency or mitral regurgitation *Normal caliber aorta. CORONARY ANGIOGRAPHY: LM is a large caliber vessel with normal angiographic appearance. LAD is a large caliber vessel with a long mid 50% stenosis. The very apical LAD has a 50% stenosis. D1 is a small caliber vessel with mild luminal irregularities. LCx is a moderate to large caliber non-dominant vessel with normal angiographic appearance. OM1 is a moderate caliber vessel with normal angiographic appearance. RCA is a large caliber dominant vessel with a proximal 20% stenosis, followed by patent mid stents. T he distal vessel has no significant disease. RPDA and RPL are moderate caliber vessels with normal angiographic appearance. INTERVENTIONAL TECHNIQUE: FFR OF LAD Given the presenting symptoms, angiographic findings an iFR was performed. Bivalirudin was used for a nticoagulation. Through a 6F EBU 3.5 guide catheter, a 0.014'' [place] pressure wire was advanced to the distal LAD after appropriate normalization and NTG administration. An iFR was measured at 0.91. A pull back confirmed appropriate pressure waveforms and a non-significant lesion. Given this, further intervention was deferred in favor of medical therapy. Conclusion 1. Normal LV systolic function. EF 55% 2. Two vessel CAD 3. Negative iFR of the LAD. Recommendations Aggressive Medical Therapy Patient has significant exertional fatigue and chest pain. If Renexa does not improve symptoms in 2 w eeks, then will plan for PCI of LAD.
[2017-06-01] MEDS ORDERED: RANO500T2 PO (16:35)
[2017-06-01] MEDS ORDERED: ATOR40TA PO (16:56)
== END 2017-06-01 18:28 | disposition home or self-care (01) ==
LOC: ER 11:18 → 6 SOUTH 12:36 → 2 SOUTH 06-01 12:09
PROVIDERS: ADMIT Internal Medicine; ATTEND Internal Medicine
DX: I25.110 Atherosclerotic heart disease of native coronary artery with unstable angina pectoris (principal); I25.2 Old myocardial infarction; K31.84 Gastroparesis; K21.9 Gastro-esophageal reflux disease without esophagitis; I10 Essential (primary) hypertension; J44.9 Chronic obstructive pulmonary disease, unspecified; E78.5 Hyperlipidemia, unspecified; Z95.5 Presence of coronary angioplasty implant and graft; Z90.49 Acquired absence of other specified parts of digestive tract; Z87.891 Personal history of nicotine dependence; Z82.49 Family history of ischemic heart disease and other diseases of the circulatory system
CPT/HCPCS: 36415; 71010; 80048; 80061; 80076; 83690; 83880; 84443; 84484; 85025; 85027; 93005; 93306; 93458; 93571; 94250; 94640; 96372; 96374; C1769; C1887; C1892; G0378; G0379; J0583; J1644; J1650; J2250; J2270; J3010; J3490; J7620; Q9967; 99152; 99153; J2001